=== PATIENT | male | born 1985 | race Hispanic/Latino ===

== ENCOUNTER 2020-01-11 20:07 | Emergency (ER) | payer OTHER ==
[~2020-01-11 20:07] MED LIST: BIFI4CAP PO; METR-172 PO; RANI300T4 PO; VANC125C6 PO
[2020-01-11 20:23] LABS: BASOPHILS % (AUTO) 0.6 % (0.0-5.0); EOSINOPHILS % (AUTO) 1.8 % (0.0-8.0); LYMPHOCYTES % (AUTO) 26.3 % (21.0-51.0); MEAN CORPUSCULAR HEMOGLOBIN 27.1 pg (27.0-33.0); MEAN CORPUSCULAR HGB CONC 32.7 g/dL (32.0-36.0); MEAN CORPUSCULAR VOLUME 82.9 fL (79-99); MONOCYTES % (AUTO) 6.9 % (3.0-13.0); NEUTROPHILS % (AUTO) 63.2 % (40.0-77.0); PLATELET COUNT (AUTO) 90 K/uL (130-400); RED BLOOD CELL COUNT(AUTO) 5.91 MIL/uL (4.50-6.20); RED CELL DISTRIBUTION WIDTH 13.5 % (11.0-15.5); WHITE BLOOD COUNT (AUTO) 14.2 K/uL (4.8-10.8)
[2020-01-11] MEDS ORDERED: KETOROLAC TROMETHAMINE 30MG/ML ONE (20:35)
[2020-01-11 20:39] LABS: CREATININE 1.2 mg/dL (0.5-1.5); POTASSIUM 3.6 mmol/L (3.5-5.1)
[2020-01-11 20:41] LABS: INR 0.94 (0.85-1.15); PARTIAL THROMBOPLASTIN TIME 18.9 SEC (26.3-35.5); PROTHROMBIN TIME 9.9 SEC (9.6-11.6)
[2020-01-11 20:48] LABS: BILIRUBIN,TOTAL 0.5 mg/dL (0.2-1.0); TOTAL PROTEIN, SERUM 8.3 g/dL (6.0-8.3)
[2020-01-11] MEDS ORDERED: IOHEXOL-350 50ML VIAL IV ONE (23:09)
[2020-01-11] MEDS ORDERED: LORAZEPAM 2 MG/ML 1 ML VIAL ONE (23:14)
== END 2020-01-12 00:47 | disposition home or self-care (01) ==
LOC: EDH 20:07
DX: S20.219A Contusion of unspecified front wall of thorax, initial encounter (principal); S80.02XA Contusion of left knee, initial encounter; S80.01XA Contusion of right knee, initial encounter; S00.33XA Contusion of nose, initial encounter; S00.83XA Contusion of other part of head, initial encounter; R73.9 Hyperglycemia, unspecified; F43.10 Post-traumatic stress disorder, unspecified; Z90.49 Acquired absence of other specified parts of digestive tract; X58.XXXA Exposure to other specified factors, initial encounter; Y93.89 Activity, other specified; Y92.481 Parking lot as the place of occurrence of the external cause; Y99.8 Other external cause status
CPT/HCPCS: 36415; 70486; 71045; 71270; 73130; 73562 ×2; 80053; 82550; 84484 ×2; 85025; 85610; 85730; 93005; 96374; 96375; 99285; J1885; J2060; Q9967